=== PATIENT | female | born 1945 | race Caucasian/White ===

== ENCOUNTER 2022-08-08 14:23 | Outpatient (CLI) | payer MEDICARE, OTHER ==
[~2022-08-08 14:23] MED LIST: iohexol 350MG/ML 100ml bottle IV ONE
== END 2022-08-08 23:59 | disposition home or self-care (01) ==
LOC: RAD 14:23
PROVIDERS: ATTEND Nurse Practitioner Family
DX: I51.7 Cardiomegaly (principal); J98.11 Atelectasis; J90 Pleural effusion, not elsewhere classified; Z98.890 Other specified postprocedural states; Z95.818 Presence of other cardiac implants and grafts
CPT/HCPCS: 75574; J3490; Q9967